=== PATIENT | male | born 1940 | race Asian ===

== ENCOUNTER 2017-07-28 08:13 | Outpatient (CLI) | payer MEDICARE, OTHER | END 2017-07-28 08:14 | disposition short-term general hospital (02) | LOC: EMS 08:13 | PROVIDERS: ATTEND Surgery | DX: R40.4 Transient alteration of awareness (principal) | CPT/HCPCS: A0425; A0427 ==

== ENCOUNTER 2020-01-12 19:47 | Outpatient (CLI) | payer MEDICARE, OTHER | END 2020-01-12 19:48 | disposition critical access hospital (66) | LOC: EMS 19:47 | PROVIDERS: ATTEND Surgery | DX: M54.5 Low back pain (principal); W01.0XXA Fall on same level from slipping, tripping and stumbling without subsequent striking against object, initial encounter; Y92.003 Bedroom of unspecified non-institutional (private) residence as the place of occurrence of the external cause | CPT/HCPCS: A0425; A0429 ==

== ENCOUNTER 2020-01-12 20:04 | Emergency (ER) | payer MEDICARE, OTHER ==
--- NOTE | 2020-01-12 20:11 | ED Physician Documentation ---
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 He and the family deny being anticoagulated. About 6 months ago he had a left hip replacement as well. He is unable to ambulate.) Review of Systems Constitutional: reports: Reviewed and negative Eyes: reports: Reviewed and negative Ears: reports: Reviewed and negative Nose: reports: Reviewed and negative Throat: reports: Reviewed and negative Cardiac: reports: Reviewed and negative Respiratory: reports: Reviewed and negative GI: reports: Reviewed and negative : reports: Reviewed and negative Skin: reports: Reviewed and negative Musculoskeletal: reports: Other (fall, back pain, left hip pain, unable to ambulate) Neurologic: reports: Reviewed and negative Psychiatric: reports: Reviewed and negative Endocrine: reports: Reviewed and negative Immunocompromised: reports: Reviewed and negative PD PAST MEDICAL HISTORY - Present Medications Home Medications: Ambulatory Orders Medication Instructions Recorded Confirmed Hydrocodone/Acetaminophen [[place] 1 each PO Q6HR PRN #7 tablet 01/12/20 5-325 Tablet] - Allergies Allergies/Adverse Reactions: Allergies Allergy/AdvReac Type Severity Reaction Status Date / Time lisinopril AdvReac Unknown Verified 01/12/20 20:07 PD ED PE NORMAL - Vitals Vital signs reviewed: Yes - General General: No acute distress - HEENT HEENT: PERRL - Neck Neck: Supple, no meningeal sign - Cardiac Cardiac: RRR, No murmur - Respiratory Respiratory: Clear bilaterally - Abdomen Abdomen: Normal bowel sounds, Soft, Non tender, Non distended - Derm Derm: Warm and dry - Extremities Extremities: No deformity - Neuro Neuro: Alert and oriented X 3 - Psych Psych: Normal mood, Normal affect Results - Vitals Vitals: Vital Signs - 24 hr 01/12/20 20:07 Temperature 37.2 C Heart Rate 70 Respiratory 14 Rate Blood Pressure 130/66 O2 Saturation 94 Oxygen O2 Source Room air - Labs Labs: Laboratory Tests 01/12/20 01/12/20 01/12/20 21:07 21:07 21:07 WBC 6.9 RBC 3.68 L Hgb 12.2 L Hct 35.9 L MCV 97.6 H MCH 33.2 H MCHC 34.0 RDW 12.7 Plt Count 122 L MPV 9.0 Neut # (Auto) 5.5 Lymph # (Auto) 0.6 L [place] # (Auto) 0.6 Eos # (Auto) 0.2 Baso # (Auto) 0.0 Absolute Nucleated RBC 0.00 Nucleated RBC % 0.0 PT 13.6 H INR 1.2 APTT 29.0 Sodium 137 Potassium 3.9 Chloride 100 L Carbon Dioxide 25 Anion Gap 12.0 BUN 19 Creatinine 0.6 Estimated GFR (MDRD) 130 Glucose 138 H Calcium 9.0 Total Bilirubin 1.4 H AST 19 ALT 16 Alkaline Phosphatase 94 Total Creatine Kinase 209 Troponin I High Sens Total Protein 6.5 L Albumin 4.0 Globulin 2.5 Albumin/Globulin Ratio 1.6 Lipase 37 Urine Color Urine Clarity Urine pH Ur Specific [place] Urine Protein Urine Glucose (UA) Urine Ketones Urine Occult Blood Urine Nitrite Urine Bilirubin Urine Urobilinogen Ur Leukocyte Esterase Ur Microscopic Review Urine Culture Comments Ethyl Alcohol < 5.0 01/12/20 01/12/20 21:07 21:30 WBC RBC Hgb Hct MCV MCH MCHC RDW Plt Count MPV Neut # (Auto) Lymph # (Auto) [place] # (Auto) Eos # (Auto) Baso # (Auto) Absolute Nucleated RBC Nucleated RBC % PT INR APTT Sodium Potassium Chloride Carbon Dioxide Anion Gap BUN Creatinine Estimated GFR (MDRD) Glucose Calcium Total Bilirubin AST ALT Alkaline Phosphatase Total Creatine Kinase Troponin I High Sens 7.4 Total Protein Albumin Globulin Albumin/Globulin Ratio Lipase Urine Color YELLOW Urine Clarity CLEAR Urine pH 6.0 Ur Specific [place] 1.020 Urine Protein NEGATIVE Urine Glucose (UA) NEGATIVE Urine Ketones NEGATIVE Urine Occult Blood NEGATIVE Urine Nitrite NEGATIVE Urine Bilirubin NEGATIVE Urine Urobilinogen 1 (NORMAL) Ur Leukocyte Esterase NEGATIVE Ur Microscopic Review NOT INDICATED Urine Culture Comments NOT INDICATED Ethyl Alcohol PD MEDICAL DECISION MAKING - ED course Complexity details: re-evaluated patient, d/w patient, d/w family, other (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 and recurrent falls concern was for fracture or dislocation imaging is unremarkable with the exception of an L1 endplate fracture.The patient is able to ambulate with assistance I did have a lengthy discussion with the patient and the as well as the daughter as far as disposition ultimately they would like to take the patient home and care for home however in the future it is likely that they will need home health.) Departure - Departure Disposition: Home, Self Care Clinical Impression: Lumbar stress fracture Qualifiers: Encounter type: initial encounter Qualified Code(s): M48.46XA - Fatigue fracture of vertebra, lumbar region, initial encounter for fracture Condition: Fair Instructions: ED Fx Comp Vertebral Follow-Up: YOUR,DOCTOR [Other] - Within 3 Days Prescriptions: Hydrocodone/Acetaminophen [[place] 5-325 Tablet] 1 each PO Q6HR PRN #7 tablet PRN Reason: Pain
[2020-01-12 21:12] LABS: BASOPHILS % (AUTO) 0.4 %; EOSINOPHILS # (AUTO) 0.2 10^3/uL (0.0-0.7); EOSINOPHILS % (AUTO) 2.5 %; HGB - HEMOGLOBIN 12.2 g/dL (14.0-18.0); LYMPHOCYTES # (AUTO) 0.6 10^3/uL (1.5-3.5); LYMPHOCYTES % (AUTO) 8.5 %; MEAN CORPUSCULAR HEMOGLOBIN 33.2 pg (27.0-31.0); MEAN CORPUSCULAR VOLUME 97.6 fL (80.0-94.0); MONOCYTES # (AUTO) 0.6 10^3/uL (0.0-1.0); MONOCYTES % (AUTO) 9.1 %; NEUTROPHILS # (AUTO) 5.5 10^3/uL (1.5-6.6); NEUTROPHILS % (AUTO) 79.1 %; PLT - PLATELET COUNT 122 10^3/uL (130-450); RED BLOOD COUNT 3.68 10^6/uL (4.70-6.10); RED CELL DISTRIBUTION WIDTH 12.7 % (12.0-15.0); WHITE BLOOD COUNT 6.9 x10^3/uL (4.8-10.8)
[2020-01-12 21:19] LABS: INR 1.2 (0.8-1.2); PT - PROTHROMBIN TIME 13.6 secs (9.9-12.6)
--- NOTE | 2020-01-12 21:24 | CT Report ---
Reason: fall back pain Procedure Date: 01/12/2020 Accession Number: [id number] / [id number] Procedure: CT - THORACIC SPINE WO CPT Code: Final Report FULL RESULT: EXAM: CT THORACIC SPINE WITHOUT CONTRAST EXAM DATE: 01/12/2020 08:50 PM. CLINICAL HISTORY: Fall back pain. COMPARISONS: CHEST 1 VIEW 01/12/2020 8:39 PM. TECHNIQUE: Thin-section axial images were acquired of the thoracic spine from C7 to L1 without contrast. Post-processing: Coronal and sagittal reformats. Other: None. In accordance with CT protocol optimization, one or more of the following dose reduction techniques were utilized for this exam: automated exposure control, adjustment of mA and/or KV based on patient size, or use of iterative reconstructive technique. FINDINGS: Alignment: No scoliosis or spondylolisthesis. Bones: No fracture or bone lesion. Disk Levels/Facets: Mild to moderate multilevel disk and facet joint degeneration. Otherwise, unremarkable. Musculature: Normal. No fatty atrophy. Other: The visualized lungs, mediastinum, and abdominal cavity are unremarkable. Biventricular cardiac device with tips in the regions of the right atrial appendage, coronary vein, and right ventricular apex. Severe coronary artery and moderate aortic atherosclerotic calcifications. IMPRESSION: No fracture or subluxation. RADIA
--- NOTE | 2020-01-12 21:27 | XRAY Report ---
Reason: fall left hip pain Procedure Date: 01/12/2020 Accession Number: [id number] / [id number] Procedure: XR - Hip w/Pelvis 2-3V LT CPT Code: Final Report FULL RESULT: EXAM: LEFT HIP RADIOGRAPHY EXAM DATE: 01/12/2020 09:04 PM HISTORY: Fall left hip pain. COMPARISONS: None available. TECHNIQUE: 2 views. FINDINGS: Bones: The bones are osteopenic. No acute fracture or dislocation visualized. Joints: Total arthroplasty changes to the left hip. No acute periprosthetic fracture. No evidence of acute hardware complication. Mild narrowing of the right hip joint space. Soft Tissues: Unremarkable. IMPRESSION: Osteopenia. No acute fracture visualized. Note: Osteopenia can limit detection of trabecular fractures. If the patient cannot ambulate, recommend CT or MRI hip to exclude radiographically occult fracture. RADIA
[2020-01-12 21:28] LABS: ALBUMIN/GLOBULIN RATIO 1.6 (1.0-2.2); ALKALINE PHOSPHATASE 94 IU/L (42-121); ALT ALANINE AMINOTRANSFERASE 16 IU/L (10-60); AST ASPARTATE AMINOTRANSFERASE 19 IU/L (10-42); BILIRUBIN,TOTAL 1.4 mg/dL (0.2-1.0); BUN - BLOOD UREA NITROGEN 19 mg/dL (6-20); CARBON DIOXIDE - CO2 25 mmol/L (21-32); CHLORIDE 100 mmol/L (101-111); CK- CREATINE KINASE 209 IU/L (22-269); CREATININE 0.6 mg/dL (0.6-1.2); GFR - MDRD 130 (>89); GLUCOSE 138 mg/dL (70-100); LIPASE 37 U/L (22-51); SODIUM 137 mmol/L (135-145); TOTAL PROTEIN 6.5 g/dL (6.7-8.2)
--- NOTE | 2020-01-12 21:33 | XRAY Report ---
Reason: fall Procedure Date: 01/12/2020 Accession Number: [id number] / [id number] Procedure: XR - Chest 1 View X-Ray CPT Code: 04140 Final Report FULL RESULT: EXAM: CHEST RADIOGRAPHY EXAM DATE: 01/12/2020 09:05 PM CLINICAL HISTORY: Fall. COMPARISON: None. TECHNIQUE: 1 view. FINDINGS: Lungs/Pleura: Clear lungs. No pleural effusion. No pneumothorax. Mediastinum: Within exam limitations, the cardiomediastinal contour is normal. Other: Biventricular cardiac device with tips in the regions of the right atrial appendage, coronary vein, and right ventricular apex. IMPRESSION: No acute cardiopulmonary process. RADIA
[2020-01-12 21:34] LABS: BILIRUBIN,URINE NEGATIVE (NEGATIVE); GLUCOSE, URINE (UA) NEGATIVE (NEGATIVE); KETONES,URINE (UA) NEGATIVE (NEGATIVE); LEUKOCYTE ESTERASE, URINE NEGATIVE (NEGATIVE); NITRITE,URINE NEGATIVE (NEGATIVE); OCCULT BLOOD,URINE NEGATIVE (NEGATIVE); PROTEIN,URINE NEGATIVE (NEGATIVE); UROBILINOGEN,URINE 1 (NORMAL) E.U./dL (NORMAL)
[2020-01-12 21:35] LABS: CLARITY,URINE CLEAR (CLEAR)
--- NOTE | 2020-01-12 21:37 | CT Report ---
Reason: fall lower back pain Procedure Date: 01/12/2020 Accession Number: [id number] / [id number] Procedure: CT - LUMBAR SPINE WO CPT Code: Final Report FULL RESULT: EXAM: CT LUMBAR SPINE WITHOUT CONTRAST EXAM DATE: 01/12/2020 08:50 PM. CLINICAL HISTORY: Trauma. Low back pain. COMPARISONS: None. TECHNIQUE: Thin-section axial images were acquired of the lumbar spine from T11 to S5 without contrast. Post-processing: Coronal and sagittal reformats. Other: None. In accordance with CT protocol optimization, one or more of the following dose reduction techniques were utilized for this exam: automated exposure control, adjustment of mA and/or KV based on patient size, or use of iterative reconstructive technique. FINDINGS: ALIGNMENT: Levoscoliosis. Grade 1 anterolisthesis L5 on S1. There is also minimal grade 1 retrolisthesis L3 on L4. BONES: The bones are osteopenic. Acute insufficiency fracture of the superior endplate of L1 without significant vertebral body height loss. No suspicious osseous lesions. PARASPINAL SOFT TISSUES: Moderate/severe aortic atherosclerosis. Left total hip arthroplasty. DISKS/JOINTS: Multilevel degenerative changes including moderate to severe disk height loss throughout the lumbar spine with multilevel uncinate process spurs and facet joint arthropathy. There is moderate/severe central canal stenosis at L3-L4. Mild central canal stenosis at L2-L3 and L4-L5. Multilevel neuroforaminal stenosis which is severe on the right at L3-L4, L4-L5 and L5-S1. IMPRESSION: 1. Acute insufficiency fracture of the superior endplate of L1 without significant vertebral body height loss. 2. Multilevel degenerative changes. RADIA
[2020-01-12 22:37] VITALS: BP 114/65
== END 2020-01-12 22:35 | disposition home or self-care (01) ==
LOC: EDUNIT# → ED 20:04
DX: M48.46XA Fatigue fracture of vertebra, lumbar region, initial encounter for fracture (principal); W19.XXXA Unspecified fall, initial encounter; Y93.89 Activity, other specified; Y92.009 Unspecified place in unspecified non-institutional (private) residence as the place of occurrence of the external cause
CPT/HCPCS: 36415; 71045; 72128; 72131; 80053; 80320; 81001; 81003; 82550; 83690; 84484; 85025; 85610; 85730; 87086; 93005; 99283; 99284

== ENCOUNTER 2020-04-09 14:31 | Outpatient (CLI) | payer MEDICARE, OTHER | END 2020-04-09 14:32 | disposition EMS.NT | LOC: EMS 14:31 | PROVIDERS: ATTEND Surgery | DX: Z03.89 Encounter for observation for other suspected diseases and conditions ruled out (principal) ==

== ENCOUNTER 2020-11-28 | Outpatient (CLI) | payer MEDICARE, OTHER | END 2020-11-28 14:33 | disposition critical access hospital (66) | CPT/HCPCS: A0425; A0429 ==

== ENCOUNTER 2020-11-28 14:57 | Emergency (ER) | payer MEDICARE, OTHER ==
[2020-11-28 15:21] VITALS: BP 123/89
--- NOTE | 2020-11-28 15:21 | ED Physician Documentation ---
History of Present Illness - Stated complaint Stated Complaint: R RIB PX/FALL - Chief complaint Chief Complaint: Trauma Ch/Bk - History obtained from History obtained from: Patient, EMS - Additonal information Additional information: Patient is brought to the emergency department by EMS after sustaining a ground- level fall of some sort and complaining of right rib pain afterward. The details of the fall are not very clear, as patient is not a great historian and medics only know that the patient fell. The patient apparently did not hit his head. He denies any spinal pain. No difficulty breathing. No abdominal pain. No shortness of breath or cough. No other complaints at this time. Patient lives at home with his , who is his caregiver. Review of Systems Ten Systems: 10 systems reviewed and negative Constitutional: reports: Reviewed and negative Eyes: reports: Reviewed and negative Ears: reports: Reviewed and negative Nose: reports: Reviewed and negative Throat: reports: Reviewed and negative Cardiac: reports: Reviewed and negative Respiratory: reports: Other (Chest pain) GI: reports: Reviewed and negative : reports: Reviewed and negative Skin: reports: Reviewed and negative Musculoskeletal: reports: Reviewed and negative Neurologic: reports: Reviewed and negative Psychiatric: reports: Reviewed and negative Endocrine: reports: Reviewed and negative Immunocompromised: reports: Reviewed and negative PD PAST MEDICAL HISTORY - Past Medical History Past Medical History: Yes Cardiovascular: Hypertension, High cholesterol Neuro: Other Endocrine/Autoimmune: Type 2 diabetes Other Past Medical History: Brain cancer. - Past Surgical History Past Surgical History: Yes - Present Medications Home Medications: Ambulatory Orders Medication Instructions Recorded Confirmed Hydrocodone/Acetaminophen [[place] 1 each PO Q6HR PRN #7 tablet 01/12/20 5-325 Tablet] - Allergies Allergies/Adverse Reactions: Allergies Allergy/AdvReac Type Severity Reaction Status Date / Time lisinopril AdvReac Unknown Verified 01/12/20 20:07 - Social History Does the pt smoke?: No Smoking Status: Never smoker Does the pt drink ETOH?: No Does the pt have substance abuse?: No - Immunizations Immunizations are current?: Yes - POLST Patient has POLST: No PD ED PE NORMAL - Vitals Vital signs reviewed: Yes - General General: No acute distress, Other (Somewhat confused, but alert and answers questions. No apparent distress.) - HEENT HEENT: Atraumatic, PERRL, EOMI, Moist mucous membranes - Neck Neck: Supple, no meningeal sign - Cardiac Cardiac: RRR, No murmur, Strong equal pulses - Respiratory Respiratory: No respiratory distress, Clear bilaterally, Other (Moderate tenderness right anterior chest wall near nipple. No bony step-off or deformity. Nose swelling or contusion.) - Abdomen Abdomen: Soft, Non tender, Non distended - Back Back: No CVA TTP, No spinal TTP - Derm Derm: Normal color, Warm and dry, No rash - Extremities Extremities: No deformity, No edema, No calf tenderness / cord - Neuro Neuro: Other (Alert, conversant. Moving all 4 extremities.) - Psych Psych: Normal mood, Normal affect Results - Vitals Vitals: Oxygen O2 Source Room air - Labs Labs: Laboratory Tests 11/28/20 11/28/20 15:38 15:38 WBC 11.6 H RBC 4.75 Hgb 16.5 Hct 48.7 MCV 102.5 H MCH 34.7 H MCHC 33.9 RDW 12.9 Plt Count 195 MPV 10.3 Neut # (Auto) 9.7 H Lymph # (Auto) 1.0 L [place] # (Auto) 0.8 Eos # (Auto) 0.0 Baso # (Auto) 0.1 Absolute Nucleated RBC 0.00 Nucleated RBC % 0.0 Sodium 144 Potassium 3.2 L Chloride 98 L Carbon Dioxide 32 Anion Gap 14.0 H BUN 33 H Creatinine 0.8 Estimated GFR (MDRD) 93 Glucose 132 H Calcium 9.8 Total Bilirubin 1.6 H AST 20 ALT 16 Alkaline Phosphatase 98 Total Protein 7.5 Albumin 4.1 Globulin 3.4 Albumin/Globulin Ratio 1.2 Lipase 67 H PD MEDICAL DECISION MAKING - ED course Complexity details: reviewed old records, reviewed results, re-evaluated patient, considered differential, d/w patient ED course: The patient did not have any evidence of trauma with exception of the tenderness of his right chest wall. He was sent for x-rays of the ribs and chest to evaluate this, and refused to cooperate with positioning. Limited x-ray eval was negative. Labs were obtained, and unremarkable for acute findings. Pt would not allow IV to be placed, and refused urination or catheterization. We did d/w by phone that pt is refusing certain tests/interventions, and that our ability to hydrate pt or to complete work-up has been limited by this. did state they are looking into palliative care. She said she would come get the pt. No emergent condition has been identified. Departure - Departure Disposition: 01 Home, Self Care Clinical Impression: Generalized weakness, Hypokalemia Contusion of rib on right side Qualifiers: Encounter type: initial encounter Qualified Code(s): S20.211A - Contusion of right front wall of thorax, initial encounter Condition: Stable Instructions: ED Potassium Deficiency, ED Fall Dizziness Weakn Balance, ED Contusion Vs Minor Fx Rib Comments: All of the testing that Ihsan would allow us to do has been unremarkable today, with the exception of a slightly low potassium. He has been given a supplement for this today in the emergency department and should have this level rechecked with his doctor when he is seen again in follow-up. Ihsan would not allow us to obtain a urine sample and also, it would not allow an IV to be placed so we could give him fluids. As such, we have not been able to address the potential for urinary tract infection or dehydration today. If Ihsan develops fever and vomiting, he should be brought back to the emergency department. He should be encouraged to drink plenty of fluids, as dehydration can cause a sense of generalized weakness. It is very likely that the main cause of his falls is the progressive leg weakness related to his underlying conditions. Please have him follow-up with his neurologist for further evaluation of this. His x-ray series does not show any broken ribs today. Additionally, there is no acute process going on in the lungs, requiring immediate intervention. Discharge Date/Time: 11/28/20 18:08
[2020-11-28] MEDS ORDERED: SODIUM CHLORIDE 0.9% 1,000 ML IV STA (15:30)
[2020-11-28 15:53] LABS: BASOPHILS # (AUTO) 0.1 10^3/uL (0.0-0.1); BASOPHILS % (AUTO) 0.4 %; EOSINOPHILS % (AUTO) 0.3 %; HGB - HEMOGLOBIN 16.5 g/dL (14.0-18.0); LYMPHOCYTES % (AUTO) 8.4 %; MEAN CORPUSCULAR HEMOGLOBIN 34.7 pg (27.0-31.0); MEAN CORPUSCULAR HGB CONC 33.9 g/dL (32.0-36.0); MEAN CORPUSCULAR VOLUME 102.5 fL (80.0-94.0); MEAN PLATELET VOLUME 10.3 fL (7.4-11.4); MONOCYTES # (AUTO) 0.8 10^3/uL (0.0-1.0); MONOCYTES % (AUTO) 6.8 %; NEUTROPHILS # (AUTO) 9.7 10^3/uL (1.5-6.6); NEUTROPHILS % (AUTO) 83.8 %; PLT - PLATELET COUNT 195 10^3/uL (130-450); RED BLOOD COUNT 4.75 10^6/uL (4.70-6.10); RED CELL DISTRIBUTION WIDTH 12.9 % (12.0-15.0); WHITE BLOOD COUNT 11.6 x10^3/uL (4.8-10.8)
--- NOTE | 2020-11-28 16:08 | XRAY Report ---
PROCEDURE: Chest 1 View X-Ray INDICATIONS: R rib pain after fall TECHNIQUE: One view of the chest was acquired. COMPARISON: Chest radiograph dated 01/12/2020 FINDINGS: Surgical changes and devices: Left chest wall pacemaker and median sternotomy wires are seen.. Lungs and pleura: No pleural effusions or pneumothorax. Lungs are clear. Mediastinum: Mediastinal contours appear normal. Heart size is normal. Bones and chest wall: No suspicious bony lesions. Overlying soft tissues appear unremarkable. IMPRESSION: No acute cardiopulmonary pathology. No obvious displaced right rib fracture is identified. Reviewed by: Jhonatan Saucedo MD on 11/28/2020 4:07 PM PST Approved by: Jhonatan Saucedo MD on 11/28/2020 4:07 PM PST Station ID: [id number]
[2020-11-28 16:10] LABS: ALBUMIN 4.1 g/dL (3.2-5.5); ALBUMIN/GLOBULIN RATIO 1.2 (1.0-2.2); BILIRUBIN,TOTAL 1.6 mg/dL (0.2-1.0); CALCIUM 9.8 mg/dL (8.5-10.3); CREATININE 0.8 mg/dL (0.6-1.2); TOTAL PROTEIN 7.5 g/dL (6.7-8.2)
[2020-11-28] MEDS ORDERED: POTASSIUM CHLORIDE 20 MEQ TABLET PO STA (16:59)
== END 2020-11-28 18:08 | disposition home or self-care (01) ==
LOC: EDUNIT# → ED 14:57
DX: S20.211A Contusion of right front wall of thorax, initial encounter (principal); W19.XXXA Unspecified fall, initial encounter; Z85.841 Personal history of malignant neoplasm of brain; R53.1 Weakness; I10 Essential (primary) hypertension; E11.9 Type 2 diabetes mellitus without complications; E87.6 Hypokalemia
CPT/HCPCS: 71045; 80053; 83690; 85025; 99283; 99284; A9270

== ENCOUNTER 2020-12-02 22:40 | Outpatient (CLI) | payer MEDICARE, OTHER ==
--- OUTSIDE RECORDS SUMMARY | 2020-12-11 00:02 | EXTERNAL MEDICAL SUMMARY RPT | Continuity of Care Document ---
:1940 Demographics Phone Unavailable Preferred Language Unknown Marital Status Unknown Orthodox Affiliation Unknown Race Unknown Ethnic Group Unknown Author Organization [facility] Address [address] [place] [address] Phone Support Name Relationship Address Phone RETI Unavailable Unavailable Unavailable Problems date description facility 2020-11-28 14:57 TYPE 2 DIABETES MELLITUS WITHOUT [facility] COMPLICATIONS 2020-11-28 14:57 HYPOKALEMIA [facility] 2020-11-28 14:57 ESSENTIAL (PRIMARY) HYPERTENSION [facility] 2020-11-28 14:57 WEAKNESS [facility] Medic [facility] 2020-11-28 14:57 CONTUSION OF RIGHT FRONT WALL OF [facility] THORAX, INITIAL E 2020-11-28 14:57 UNSPECIFIED FALL, INITIAL [facility] ENCOUNTER 2020-11-28 14:57 PERSONAL HISTORY OF MALIGNANT [facility] NEOPLASM OF BRAIN Allergies date description facility NO KNOWN ALLERGIES [facility] LISINOPRIL [facility] NSAIDS (NON-STEROIDAL ANTI-INFLAMMATORY DRUG) [facility] PENICILLINS [facility] NO KNOWN ALLERGIES [facility] MORPHINE [facility] HYDROCODONE [facility] OXYCODONE [facility] METHYLPREDNISOLONE [facility] BUPROPION [facility] QUETIAPINE [facility] [id number] [facility] lisinopril [facility] Results Social History date description facility [id number]
== END 2020-12-02 22:41 | disposition expired ==
LOC: EMS 22:40
PROVIDERS: ATTEND Surgery
DX: I46.9 Cardiac arrest, cause unspecified (principal)
CPT/HCPCS: A0425; A0429